=== PATIENT | male | born 1990 | race Caucasian/White ===

== ENCOUNTER 2018-11-12 14:54 | Emergency (ER) | payer OTHER ==
--- NOTE | 2018-11-12 15:10 | EDPHY ---
H & P Stated Complaint: Fell snowboarding;inj to L clavicle/shoulder;no LOC,+helmet Time Seen by Provider: 11/12/18 15:10 HPI/ROS: HPI CHIEF COMPLAINT: Fall snowboarding left shoulder pain. HISTORY OF PRESENT ILLNESS: Otherwise healthy 28-year-old male presents emergency room after he fell snowboarding. He was skiing at [employer] and at the end of the slope he fell. He was helmeted. He landed on his left shoulder. He now has left shoulder pain and left clavicle pain. Denies abdominal pain head or neck pain. He was helmeted. Denies LOC. Past Medical History: Denies significant medical history Past Surgical History: Denies significant surgical history Social History: Denies drugs alcohol tobacco Family History: Noncontributory ROS REVIEW OF SYSTEMS: 10 Systems were reviewed and negative with the exception of the elements mentioned in the history of present illness. Exam Constitutional triage nursing summary reviewed, vital signs reviewed, awake/ alert. Eyes normal conjunctivae and sclera, EOMI, PERRLA. HENT normal inspection, atraumatic, moist mucus membranes, no epistaxis, neck supple/ no meningismus, no raccoon eyes. Respiratory good breath sounds bilaterally, clear to auscultation bilaterally, normal breath sounds, no respiratory distress, no wheezing. Cardiovascular rate normal, regular rhythm, no murmur, no edema, distal pulses normal. Gastrointestinal soft, non-tender, no rebound, no guarding, normal bowel sounds, no distension, no pulsatile mass. Genitourinary no CVA tenderness. Musculoskeletal left upper extremity: Neurovascular intact with good distal pulse, good cap refill, mild tender palpation mid shaft left clavicle, x-ray nerve intact. no midline vertebral tenderness, full range of motion, no calf swelling, no tenderness of extremities, no meningismus, good pulses, neurovascularly intact. Skin pink, warm, & dry, no rash, skin atraumatic. Neurologic awake, alert and oriented x 3, AAOx3, moves all 4 extremities equally, motor intact, sensory intact, CN II-XII intact, normal cerebellar, normal vision, normal speech. Psychiatric normal mood/affect. Heme/Lymph/Immune no lymphadenopathy. Differential Diagnosis: Includes but is not limited to in a particular order clavicle fracture, shoulder dislocation, pneumothorax, shoulder fracture Medical Decision Making: Plan for this patient two view chest x-ray, left shoulder x-ray, and re-evaluate. Re-evaluation: X-ray left shoulder shows a grade 2/3 AC joint separation. X-ray of the chest reviewed no evidence of acute trauma no pneumothorax. AC joint separation visualized. Plan for this patient sling. Recommend ice and anti-inflammatories. Recommend orthopedic follow-up Patient's left arm and shoulder neurovascular intact good axillary nerve. Good distal pulse distally. No compartment syndrome. Range of motion appropriate but discomfort left clavicle. 1642 re-evaluation patient resting comfortably no acute distress placed in a sling for comfort. He is neurovascular intact of the left arm good distal pulse, good cap refill. X-ray nerve intact. Recommend he has close follow-up with Orthopedics Recommend ice, anti-inflammatory pain medicine return precautions discussed. Source: Patient - Personal History Current Tetanus Diphtheria and Acellular Pertussis (TDAP): Yes - Medical/Surgical History Other PMH: healthy - Social History Smoking Status: Never smoked Constitutional: Initial Vital Signs Temperature (C) 36.5 C 11/12/18 14:55 Heart Rate 88 11/12/18 14:55 Respiratory Rate 18 11/12/18 14:55 Blood Pressure 130/91 H 11/12/18 14:55 O2 Sat (%) 98 11/12/18 14:55 O2 Delivery Mode Room Air Allergies/Adverse Reactions: No Known Allergies Allergy (Unverified 11/12/18 15:00) Home Medications: Medication Instructions Recorded NK [No Known Home Meds] 11/12/18 Medical Decision Making - Diagnostics Imaging Results: Imaging Impressions Chest X-Ray 11/12/18 15:13 Impression: Grade 2 left AC joint separation, acute versus chronic. Otherwise negative PA and lateral chest.. Shoulder X-Ray 11/12/18 15:13 Impression: Grade 3 left acromioclavicular joint separation, with widening of the coracoclavicular interspace. Departure - Departure Disposition: Home, Routine, Self-Care Clinical Impression: Acromioclavicular joint separation, type 2 Condition: Good Instructions: Acromioclavicular Separation (ED), Musculoskeletal Pain (ED), Arthralgia (ED) Additional Instructions: 1. Stay in your sling for comfort and immobilization 2. Recommend anti-inflammatory pain medicine Tylenol and/or Motrin 3. Ice. 4. Follow up with Orthopedic surgery. 5. Return to the ER for worsening symptoms Referrals: NONE *PRIMARY CARE P,. [Primary Care Provider] - As per Instructions Abiel Sanchez MD [Medical Doctor] - As per Instructions
[2018-11-12 16:51] VITALS: BP 128/88
== END 2018-11-12 16:51 | disposition home or self-care (01) ==
DX: S43.112A Subluxation of left acromioclavicular joint, initial encounter (principal); V00.311A Fall from snowboard, initial encounter; Y92.838 Other recreation area as the place of occurrence of the external cause; Y93.23 Activity, snow (alpine) (downhill) skiing, snowboarding, sledding, tobogganing and snow tubing; Y99.9 Unspecified external cause status
CPT/HCPCS: A4565